=== PATIENT | male | born 1930 | race Caucasian/White ===

== ENCOUNTER → 2017-04-06 | Outpatient (CLI) | payer OTHER, MEDICARE | LOC: BHFA 10:00 | PROVIDERS: ATTEND Internal Medicine Cardiovascular Disease | DX: I35.0 Nonrheumatic aortic (valve) stenosis (principal) ==

== ENCOUNTER 2017-07-25 06:15 | Day surgery (SDC) | payer OTHER, MEDICARE ==
[2017-07-25] MEDS ORDERED: ASPIRIN EC 325 MG TAB PO ONE (06:23)
[2017-07-25] MEDS ORDERED: FAMOTIDINE 20 MG TAB PO ONE (06:23)
[2017-07-25] MEDS ORDERED: diphenhydrAMINE 25 MG CAP PO ONE (06:23)
[2017-07-25] MEDS ORDERED: NS 1,000 ML IV ONE (06:23)
[2017-07-25] MEDS ORDERED: DIAZEPAM 5 MG TAB PO ONE (06:23)
--- NOTE | 2017-07-25 06:44 | CPEKG ---
Heart Rate: 60 RR Interval: 1000 P-R Interval: 168 QRSD Interval: 90 QT Interval: 400 QTC Interval: 400 P [place]: 78 QRS [place]: 2 T Wave [place]: 62 EKG Severity - NORMAL ECG - EKG Impression: SINUS RHYTHM EKG Impression: NON-SPECIFIC ST DEPRESSION Electronically Signed By: Kip Morocho 25-Jul-2017 07:06:13
[2017-07-25] MEDS ORDERED: CLOPIDOGREL BISULFATE 75 MG TAB PO ONE (06:45)
--- NOTE | 2017-07-25 06:46 | PDPROPOC ---
Sedation Plan of Care Sedation Plan of Care: vital signs stable, mental status noted, patient educated of risks, benefits, alternatives, patient can tolerate sedation ASA Classification: ASA 2 Planned drugs: fentanyl, midazolam Mallampati Score: Class 2 Mallampati Reference Image: Patient passed 3-3-2 rule?: Yes
--- NOTE | 2017-07-25 06:46 | PDHPUP ---
History & Physical Update H&P update statement: This history and physical update is based on an assessment of the patient which was completed after admission or registration (within 24 hours), but prior to the surgery/procedure. H&P update: H&P reviewed & patient examined, no change in patient's condition since H&P completed
[2017-07-25] MEDS ORDERED: LIDOCAINE 1% 300 MG/30 ML SDV ONE (06:49)
[2017-07-25] MEDS ORDERED: fentaNYL 100 MCG/2 ML INJ ONE (06:49)
[2017-07-25] MEDS ORDERED: IOPAMIDOL (ISOVUE-370) 150 ML BTL IV ONE (06:50)
[2017-07-25] MEDS ORDERED: MIDAZOLAM 2 MG/2 ML VIAL ONE (06:50)
[2017-07-25 07:02] LABS: % IMMATURE GRANULYOCYTES 0.2 % (0.0-1.1); ABSOLUTE IMMATURE GRANULOCYTES 0.01 10^3/uL (0.00-0.10); ADD DIFF? NO; ADD MORPH? NO; ADD SCAN? NO; ATYPICAL LYMPHOCYTE FLAG 10 (0-99); FRAGMENT RBC FLAG 0 (0-99); HEMATOCRIT 40.4 % (40.0-51.0); HEMOGLOBIN 13.6 g/dL (13.7-17.5); LEFT SHIFT FLG 0 (0-99); LIPEMIA HEMOLYSIS FLAG 80 (0-99); MEAN CELL HEMOGLOBIN 31.6 pg (27.9-34.1); MEAN CELL HEMOGLOBIN CONCENTR. 33.7 g/dL (32.4-36.7); MEAN PLATELET VOLUME 9.6 fL (8.7-11.7); PLATELET CLUMPS FLAG 30 (0-99); PLATELET COUNT 259 10^3/uL (150-400); RED CELL DISTRIBUTION WIDTH 13.1 % (11.5-15.2)
[2017-07-25 07:09] LABS: ANION GAP 10 mEq/L (8-16); CALCIUM 9.4 mg/dL (8.5-10.4); CARBON DIOXIDE 28 mEq/l (22-31); CHLORIDE 103 mEq/L (97-110); CHOLESTEROL 176 mg/dL (140-220); CHOLESTEROL/HDL RATIO 2.79 RATIO (1.00-4.97); CREATININE 0.8 mg/dL (0.7-1.3); GLOMERULAR FILTRATION RATE > 60; GLUCOSE 83 mg/dL (70-100); HIGH DENSITY LIPOPROTEIN 63 mg/dL (40-65); LDL/HDL RATIO 1.57 RATIO (1.00-3.64); LOW DENSITY LIPOPROTEIN 99 mg/dL (80-100); MAGNESIUM 2.2 mg/dL (1.6-2.3); NON-HIGH DENSITY LIPOPROTEIN 113 mg/dL (90-129); SODIUM 141 mEq/L (134-144); TRIGLYCERIDE 74 mg/dL (40-150); VERY LOW DENSITY LIPOPROTEINS 14 mg/dL (8-25)
[2017-07-25 07:11] LABS: INR 0.94 (0.83-1.16); PROTIME(PATIENT) 12.5 SEC (12.0-15.0)
[2017-07-25] MEDS ORDERED: HEPARIN 10,000 UNIT/10 ML MDV ONE (07:32)
[2017-07-25] MEDS ORDERED: HYDROCODONE/APAP 5/325 TAB PO PRN (07:55)
[2017-07-25] MEDS ORDERED: ONDANSETRON 4 MG/2 ML VIAL IVP PRN (07:55)
[2017-07-25] MEDS ORDERED: OXYCODONE/APAP 5/325 TAB PO PRN (07:55)
[2017-07-25] MEDS ORDERED: ATROPINE SULFATE 1 MG/10 ML SYR IVP PRN (07:55)
[2017-07-25] MEDS ORDERED: NITROGLYCERIN 0.4 MG BTL SL PRN (07:55)
[2017-07-25] MEDS ORDERED: DOCUSATE SODIUM 100 MG CAP PO PRN (07:56)
[2017-07-25] MEDS ORDERED: CETIRIZINE 10 MG TAB PO SCH (09:00)
[2017-07-25] MEDS ORDERED: ASPIRIN 81 MG CHEWABLE TAB PO SCH (09:00)
[2017-07-25] MEDS ORDERED: DICLOFENAC SODIUM 1% 100 GM GEL TP SCH (09:00)
[2017-07-25] MEDS ORDERED: ACETAMINOPHEN 500 MG TAB PO SCH (09:00)
--- NOTE | 2017-07-25 09:04 | CPIP ---
[f rep st] INVASIVE CARDIAC PROCEDURE DATE OF PROCEDURE: 07/25/2017 INDICATIONS FOR PROCEDURE: Critical aortic stenosis, pre-TAVR catheterization. PROCEDURES: 1. Left ventriculogram. 2. 7-[place] sheath left common femoral vein. 3. 6-[place] sheath left common femoral artery. 4. Bilateral selective angiography. 5. Right heart catheterization with [place] catheter. 6. Abdominal aortogram. HISTORY: Briefly, this is an 86-year-old male with history of worsening dyspnea on exertion, with a known history of severe aortic stenosis. The patient had been evaluated by Dr. Timoteo Carrasco and given his age and overall frailty, was deemed to be a suitable candidate for TAVR. The patient was consen danielle for right and left heart catheterization in anticipation for eventual TAVR. DESCRIPTION OF PROCEDURE: The patient was brought to [facility] where the left groin w as prepped and draped in sterile fashion. The patient had been administered 1 of Versed and 50 of fe ntanyl. Using local lidocaine, a short 7-[place] sheath was placed in the left femoral vein. A 6-[facility] sheath was placed in the left common femoral artery with local lidocaine and verified angiographi shantal. A [place] catheter was then advanced. Wedge pressure was measured to be 12/12, with a mean of 11. PA pressure was measured to be 44/11, with a mean of 22. RV pressure was noted to be 55/19, with the end of 21. RA pressure was measured to be 15/15, with a mean of 12. Cardiac output was me asured to be 7.0 by Keith, with a cardiac index of 4.2. The patient had a baseline PVR of 1.5 and SVR of 8.6. The [place] catheter was then removed. A JL4 catheter was then advanced to the left elisa nary artery. Images of the left coronary artery revealed a short left main. Left circumflex artery had mild plaque disease, but no significant stenosis. It terminated to a bifurcating marginal artery distally, which appeared to be healthy and free of disease. The LAD gave off multiple small diagona l arteries, all of which were healthy and free of disease. The LAD, itself, had no significant steno sis. After the images were obtained, the JL4 catheter was removed. The JR4 catheter was advanced ov er the right coronary artery. Images of the right coronary artery revealed normal ostial proximal mi d distal RCA. The RPDA and RPLS appeared to be healthy and free of disease. After imaging was obtai frances. The JR4 catheter was removed. The pigtail catheter was advanced to the descending aorta. Abdo nuris aortogram was obtained under digital subtraction imaging, which showed patent ascending aorta, patent bilateral common iliac arteries. The right external iliac artery, just after the takeoff of t he right common iliac artery, had tubular 30% disease. The right internal iliac artery appeared to b e widely patent, and the right common femoral artery appeared to be widely patent. The left external iliac artery appeared to be widely patent. The left internal and common femoral arteries appeared t o be widely patent. Of note, the patient had received 3000 heparin at the start of the procedure. P igtail catheter was removed over a 0.035 wire, after which a sheath was sutured in place. The patien t tolerated the procedure well. No complications. IMPRESSION: 1. 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 2. Mild pulmonary hypertension with normal cardiac output. 3. Patent bilateral aortoiliac arteries with 30% disease in the right common/external iliac artery. PLAN: The patient will proceed with an ACT of less than 170. He will be discharged later this brandy taylor. He will follow up in the office in 1 weeks time. We will obtain CTAs, but most likely anticipat e performing transfemoral TAVR in the next few weeks. /[id number]/MODL
[2017-07-27] MEDS ORDERED: MULTIVITAMINS 1 EACH TAB PO SCH (07:56)
== END 2017-07-25 13:23 | disposition home or self-care (01) ==
LOC: FCATH 06:15
PROVIDERS: ATTEND Internal Medicine Cardiovascular Disease
PROC: B2151ZZ Fluoroscopy of Left Heart using Low Osmolar Contrast (ICD-10-PCS; principal; 2017-07-25)
PROC: 06HN33Z Insertion of Infusion Device into Left Femoral Vein, Percutaneous Approach (ICD-10-PCS; principal; 2017-07-25)
PROC: B410YZZ Fluoroscopy of Abdominal Aorta using Other Contrast (ICD-10-PCS; principal; 2017-07-25)
PROC: 4A023N6 Measurement of Cardiac Sampling and Pressure, Right Heart, Percutaneous Approach (ICD-10-PCS; principal; 2017-07-25)
PROC: 04HL33Z Insertion of Infusion Device into Left Femoral Artery, Percutaneous Approach (ICD-10-PCS; principal; 2017-07-25)
DX: Z01.810 Encounter for preprocedural cardiovascular examination (principal); I35.0 Nonrheumatic aortic (valve) stenosis; I70.8 Atherosclerosis of other arteries; I27.20 Pulmonary hypertension, unspecified; R06.00 Dyspnea, unspecified; R20.2 Paresthesia of skin; Z88.0 Allergy status to penicillin
CPT/HCPCS: J0461; J1644; J2250; J3010; Q9967

== ENCOUNTER → 2017-07-27 | Outpatient (CLI) | payer OTHER, MEDICARE ==
[~2017-07-27] MED LIST: IOPAMIDOL (ISOVUE 370) 100 ML BTL IV ONE
== END ==
LOC: FIMAGING 10:48
PROVIDERS: ATTEND Internal Medicine Cardiovascular Disease
DX: Z01.810 Encounter for preprocedural cardiovascular examination (principal); I35.0 Nonrheumatic aortic (valve) stenosis; I35.1 Nonrheumatic aortic (valve) insufficiency; I70.0 Atherosclerosis of aorta; R91.1 Solitary pulmonary nodule
CPT/HCPCS: 71275; 74174; Q9967

== ENCOUNTER 2017-08-08 07:24 | Inpatient (IN) | payer OTHER, MEDICARE ==
[2017-08-08] MEDS ORDERED: IOPAMIDOL (ISOVUE-300) 100 ML BTL ONE ×2 (08:51→11:18)
[2017-08-08] MEDS ORDERED: IOPAMIDOL (ISOVUE-370) 150 ML BTL IV ONE (08:51)
[2017-08-08] MEDS ORDERED: VANCOMYCIN HCL/NORMAL SALINE 250 ML IV ONE (09:30)
--- NOTE | 2017-08-08 09:33 | PDANEPAE ---
ANE History of Present Illness here for TAVR ANE Past Medical History - Cardiovascular History Hx Hypertension: Yes Hx Arrhythmias: No Hx Chest Pain: No Hx Coronary Artery / Peripheral Vascular Disease: No Hx CHF / Valvular Disease: Yes Hx Palpitations: No - Pulmonary History Hx COPD: No Hx Asthma/Reactive Airway Disease: No Hx Recent Upper Respiratory Infection: No Hx Oxygen in Use at Home: No Hx Sleep Apnea: No - Neurologic History Hx Cerebrovascular Accident: No Hx Seizures: No Hx Dementia: No - Endocrine History Hx Diabetes: No Hypothyroid: No Hyperthyroid: No Obesity: no - Renal History Hx Renal Disorders: No - Liver History Hx Hepatic Disorders: No ANE Review of Systems Review of systems is: negative Review of Systems: - Exercise capacity Exercise capacity: <4 METS ANE Patient History - Allergies Allergies/Adverse Reactions: Penicillins Allergy (Verified 08/08/17 08:13) SEASONAL Allergy (Mild, Uncoded 08/08/17 08:13) Other-Enter Comments - Home Medications Home medications: home medication list seen and reviewed Home Medications: Aspirin [Aspirin 81mg (*)] 81 mg PO DAILY 07/18/17 [Last Taken 08/06/17] Cetirizine [ZyrTEC 10 mg (*)] 10 mg PO DAILY 07/18/17 [Last Taken 08/07/17] Diclofenac Sodium 1% [Voltaren Gel (*)] 1 luzma TP DAILY PRN 07/18/17 [Last Taken 08/07/17] Docusate Sodium [Colace 100 MG (*)] 100 mg PO DAILY PRN 07/18/17 [Last Taken 03/14] Multivitamins [Multivitamin (*)] 1 each PO WESA 07/18/17 [Last Taken 08/06/17] Acetaminophen [Tylenol 325mg (*)] 325 mg PO DAILY PRN 08/03/17 [Last Taken 08/06] Azithromycin 2,000 mg PO AD PRN 08/03/17 [Last Taken Unknown] Ferrous Sulfate [Ferrous Sulf 325 MG (*)] 325 mg PO WESA 08/03/17 [Last Taken ] Polyethylene Glycol 3350 [Miralax 17 gm (*)] 17 gm PO DAILY PRN 08/03/17 [Last Taken 08/06/17] - Smoking Hx Smoking Status: Never smoked ANE Labs/Vital Signs - Vital Signs Height: 173 cm Weight: 56.7 kg ANE Physical Exam - Airway Neck exam: FROM Mallampati Score: Class 2 Mouth exam: normal dental/mouth exam, poor dentition - Pulmonary Pulmonary: no respiratory distress - Cardiovascular Cardiovascular: regular rate and rhythym - ASA Status ASA Status: IV ANE Anesthesia Plan Anesthesia Plan: general endotracheal anesthesia
[2017-08-08] MEDS ORDERED: AMIODARONE HCL 150 MG/3 ML VIAL ONE (09:35)
[2017-08-08] MEDS ORDERED: ADENOSINE 6 MG/2 ML VIAL ONE (09:35)
[2017-08-08] MEDS ORDERED: MILRINONE/DEXTROSE/100 ML BAG IV ONE (09:35)
[2017-08-08] MEDS ORDERED: NA BICARBONATE 50 MEQ/50 ML VIAL ONE (09:35)
[2017-08-08] MEDS ORDERED: MAGNESIUM SULFATE 1 GM/2 ML VIAL ONE (09:35)
[2017-08-08] MEDS ORDERED: CITRATE DEXTROSE SOLN 500 ML BAG ONE (09:35)
[2017-08-08] MEDS ORDERED: PROTAMINE SULFATE 50 MG/5 ML VIAL IVP ONE (09:35)
[2017-08-08] MEDS ORDERED: CALCIUM CHLORIDE 1 GM/10 ML INJ ONE (09:35)
[2017-08-08] MEDS ORDERED: DOPamine/DEXTROSE/250 ML BAG IV ONE ×2 (09:35→14:11)
[2017-08-08] MEDS ORDERED: LIDOCAINE 2% 100 MG/5 ML SYR ONE (09:35)
[2017-08-08] MEDS ORDERED: niCARdipine/NACL/200 ML BAG IV ONE (09:35)
[2017-08-08] MEDS ORDERED: ALBUMIN 5% 250 ML BOTTLE IV ONE (09:35)
[2017-08-08] MEDS ORDERED: methylPREDNISolone SOD SUCC 1 GM/8 ML VIAL ONE (09:35)
[2017-08-08] MEDS ORDERED: fentaNYL 100 MCG/2 ML INJ ONE (09:36)
[2017-08-08] MEDS ORDERED: HEPARIN 10,000 UNIT/10 ML MDV ONE (09:36)
[2017-08-08] MEDS ORDERED: ceFAZolin 1 GM VIAL ONE (09:36)
[2017-08-08] MEDS ORDERED: PROPOFOL 200 MG/20 ML VIAL ONE ×2 (09:37→11:27)
[2017-08-08] MEDS ORDERED: MIDAZOLAM 2 MG/2 ML VIAL ONE (09:37)
[2017-08-08] MEDS ORDERED: ONDANSETRON DISINTEGRATING 4 MG TAB PO PRN ×2 (10:59→11:24)
[2017-08-08] MEDS ORDERED: hydrALAZINE 20 MG/ML VIAL IVP PRN ×2 (10:59→11:24)
[2017-08-08] MEDS ORDERED: IBUPROFEN 800 MG TAB PO PRN ×2 (10:59→11:24)
[2017-08-08] MEDS ORDERED: ATROPINE SULFATE 1 MG/10 ML SYR IVP PRN ×2 (10:59→11:24)
[2017-08-08] MEDS ORDERED: ONDANSETRON 4 MG/2 ML VIAL IVP PRN ×2 (10:59→11:24)
[2017-08-08] MEDS ORDERED: oxyCODONE IR 5 MG TAB PO PRN (11:24)
[2017-08-08] MEDS ORDERED: HYDROmorphONE/DILAUDID 1 MG/ML INJ IVP PRN (11:24)
[2017-08-08] MEDS ORDERED: BACITRACIN 50,000 UNIT in SODIUM CL IRRIG SOLUTION 1,000 ML IRR ONE (11:30)
[2017-08-08] MEDS ORDERED: ACETAMINOPHEN 325 MG TAB PO SCH (12:00)
--- NOTE | 2017-08-08 12:41 | CPIP ---
[f rep st] INVASIVE CARDIAC PROCEDURE DATE OF PROCEDURE: 08/08/2017 INDICATION FOR PROCEDURE: Critical aortic stenosis. Complete heart block postprocedure. CO-SURGEONS FOR THIS CASE: 1. Dr. Timoteo Carrasco. 2. Dr. Maddie Huynh. 3. Dr. Thomas Elizondo. PROCEDURE: 1. Nonselective left coronary sheathogram. 2. Nonselective right coronary sheathogram. 3. 8-[place]izen [place] sheath, right common femoral artery. 4. 6-Citizen [place] sheath, right common femoral vein. 5. 6-[place]izen [place] sheath, left common femoral artery, upsized to a 16-[place]izen [place] sheath with triple Perclose p lacements. 6. Temporary pacemaker placed in the right ventricle via the venous sheath. 7. Aortic root angiography. 8. Left heart catheterization. 9. Balloon aortic valvuloplasty using 20 x 60 balloon. 10. Placement of Medtronic CoreValve Evolut Pro 29 mm via the transfemoral route. BRIEF HISTORY: This is an 86-year-old male with history of critical aortic stenosis. The patient [place] d been deemed to be a frail candidate for open AVR, and suitable for transfemoral TAVR. After inform ed consent, patient brought to [facility], where the patient was electively intubated. DONA performed by Dr. Maddie Huynh. The patient administered 1 g of vancomycin prior to the case. A 6-Citizen [place] sheath was pl aced into the right common femoral vein. An 8-Citizen [place] sheath in the right common femoral artery, veri fied angiographically. 6-Citizen [place] sheath in the left femoral artery, verified angiographically, upsize d to a 16-Citizen [place] sheath after triple Perclose placements. The patient administered a total of 9000 h eparin IV. Valve was crossed with an AL1 catheter switched out with a Glidewire, switched out for a pigtail catheter, switched out for Confida wire. Balloon aortic valvuloplasty commenced with a 20 x 60 balloon, with a pacing rate of 183 beats per minute. After performed, the balloon was removed. W e then proceed with placement of a Medtronic CoreValve Evolut Pro 29 mm valve. This deployed success fully. Post deployment, there was no perivalvular leak noted. Of note, however, with the immediate placement of the Medtronic CoreValve across the [place] valve, the patient did develop complete heart block, which was rectified with immediate pacing at a rate of 80 beats per minute. We checked period ically for the next 15 to 20 minutes, and there was still consistent complete heart block. Thus, at this point in time, we left the temporary pacemaker in place. The valve showed no perivalvular leak and had excellent hemodynamic profile across it. The pigtail catheter was removed, and we closed the 8-Citizen [place] site with Angio-Seal. The left groin was closed with a triple Perclose placement. 6-Frenc h sheath was left in place with the lead in the RV, with constant pacing of 80 beats per minute. IMPRESSION: 1. Successful placement of Medtronic CoreValve Evolut Pro 29 mm valve via the transfemoral route. 2. Complete heart block induced by placement of the transcatheter aortic valve implantation valve. PLAN: Given the fact the patient is still requiring the temporary pacemaker support throughout the l atter half of the case, and is quite elderly, we decided that we would place a permanent pacemaker at this time, to avoid any untoward issues with the temporary wire, and knowing, most likely, the patie nt would require a permanent pacemaker in the future. I have discussed case with Dr. Mims, and we lillian l move forward with placing this permanent pacemaker at this point. I will speak with the family mem bers, as well, as I did explain to the patient and his family members prior to the case, that there w as at least 20% to 30% chance of a permanent pacemaker placement during these cases. Further orders to follow clinical course. /[id number]/MODL
[2017-08-08] MEDS: ACETAMINOPHEN 325 MG TAB PO SCH ×3 (14:26→23:35)
--- NOTE | 2017-08-08 14:57 | CPEKG ---
Heart Rate: 68 RR Interval: 882 P-R Interval: 192 QRSD Interval: 146 QT Interval: 472 QTC Interval: 503 P [place]: 78 QRS [place]: -85 T Wave [place]: 83 EKG Severity - ABNORMAL ECG - EKG Impression: ATRIAL-SENSED VENTRICULAR-PACED RHYTHM Electronically Signed By: Lino Mims 08-Aug-2017 16:02:16
--- NOTE | 2017-08-08 15:06 | POSTANESTH ---
Post Anesthetic Evaluation Cardiovascular Status: Normal, Stable Respiratory Status: Normal, Stable Level of Consciousness/Mental Status: Can Participate in Eval Pain Control: Adequate, Prn Tx Ordered Nausea/Vomiting Control: Adequate, Prn Tx Ordered Complications Possibly Related to Anesthesia: None Noted
[2017-08-08] MEDS ORDERED: CEPACOL LOZENGE PO PRN (15:08)
--- NOTE | 2017-08-08 16:04 | EPPROC ---
Electrophysiology Procedure Note: PROCEDURE PERFORMED: 1. Implantation of an A/V Pacemaker 2. Subclavian vein angiography 3. Fluoroscopy INDICATION: Emergent pacemaker placement for complete AV block post TAVR PROCEDURE NOTE: Patient presented to the cardiac catheterization laboratory in a fasting, post absorptive state . Pt was on table under anesthesia post TAVR. The left infraclavicular area was prepped and draped in the usual sterile fashion. Left subclavian venography was performed by injection of iodinated contrast into the left antecubital vein. This was done to assure patency of the vein and also to assess for any anatomical aberrations. Using a combination of blunt and sharp dissection and electrocautery, the dissection was carried down to the prepectoral fascia. A pocket was made in this anatomical plane. All bleeding was controlled with electrocautery. The pocket was packed with gauze soaked in antibiotic solution. Fluoroscopy was utilized during the entire procedure for venous access and placement of the leads. Using a direct stick technique the left extrathoracic axillary vein was accessed with 1 sticks using the modified Seldinger technique. This was changed to 2 guidewires via sheath. Placement of the guidewires into the venous system was confirmed by low-pressure blood return and also by visualizing the guidewires advancing into the inferior vena cava. A purse string suture was applied around the guidewires. Two #6 [place] sheaths were advanced under fluoroscopic guidance over the guidewire. An active fixation ventricular lead was advanced into the right ventricular apex and screwed in place. An active fixation atrial lead was advanced into the right atrial appendage and screwed in place. The peel away sheaths were removed. Pacing thresholds, sensing parameters and lead impedances were measured. There was no diaphragmatic stimulation at maximum output. The leads were sutured to the prepectoral fascia with 3 nonabsorbable sutures each. The pocket was again inspected for any bleeding. The leads were attached to the pacemaker securely. The pacemaker was inserted into the pocket and secured in place with a nonabsorbable suture. Fluoroscopy was performed in KONG and NALLELY planes to verify right-sided placement of the leads. Also fluoroscopy of the pacemaker pocket was performed. The pacemaker pocket was closed in 2 layers with absorbable monocryl sutures and sherin. Appropriate dressing was applied. The patient left the cardiac catheterization laboratory in stable condition. Serial Numbers: 1. Device: ABT/SJM ASSURITY MRI, [id number]. SN: [id number] 2. Atrial Lead: ABT/SJM TENDRIL STS, /46. SN: [id number] 3. Ventricular Lead: ABT/SJM TENDRIL STS, /52. SN: [id number] Stimulation Thresholds & Impedance Measurements: 1. Atrial Lead: 0.5v@0.5ms / 3.2mV / 446 ohm 2. Ventricular Lead: 0.5v@.05ms / 23.4mV / 641 ohm Marco Antonio Pacing Parameters 1. Pacing mode: DDD 2. Lower rate: 60ppm 3. Upper tracking rate: 130 ppm 4. Upper sensor rate: 130 ppm Patient Problems: Problems Problem Status Onset Heart block AV third degree Acute
[2017-08-09 05:58] LABS: % IMMATURE GRANULYOCYTES 0.1 % (0.0-1.1); ABSOLUTE IMMATURE GRANULOCYTES 0.01 10^3/uL (0.00-0.10); ADD DIFF? NO; ADD MORPH? NO; ADD SCAN? NO; ATYPICAL LYMPHOCYTE FLAG 0 (0-99); FRAGMENT RBC FLAG 10 (0-99); HEMATOCRIT 31.4 % (40.0-51.0); HEMOGLOBIN 10.7 g/dL (13.7-17.5); LEFT SHIFT FLG 0 (0-99); LIPEMIA HEMOLYSIS FLAG 90 (0-99); MEAN CELL HEMOGLOBIN CONCENTR. 34.1 g/dL (32.4-36.7); MEAN PLATELET VOLUME 10.6 fL (8.7-11.7); PLATELET CLUMPS FLAG 0 (0-99); PLATELET COUNT 188 10^3/uL (150-400); RED BLOOD CELL COUNT 3.34 10^6/uL (4.40-6.38); RED CELL DISTRIBUTION WIDTH 13.2 % (11.5-15.2)
[2017-08-09 06:03] LABS: INR 1.07 (0.83-1.16); PROTIME(PATIENT) 14.1 SEC (12.0-15.0)
[2017-08-09 06:04] LABS: ANION GAP 5 mEq/L (8-16); CALCIUM 8.5 mg/dL (8.5-10.4); CARBON DIOXIDE 27 mEq/l (22-31); CHLORIDE 110 mEq/L (97-110); CREATININE 0.7 mg/dL (0.7-1.3); GLOMERULAR FILTRATION RATE > 60; GLUCOSE 85 mg/dL (70-100); SODIUM 142 mEq/L (134-144)
[2017-08-09] MEDS: ACETAMINOPHEN 325 MG TAB PO SCH ×4 (06:25→23:43)
[2017-08-09] MEDS ORDERED: POLYETHYLENE GLYCOL 3350 17 GM PKT PO PRN (07:05)
[2017-08-09] MEDS ORDERED: DICLOFENAC SODIUM 1% 100 GM GEL TP PRN (07:05)
[2017-08-09] MEDS ORDERED: DOCUSATE SODIUM 100 MG CAP PO PRN (07:05)
--- NOTE | 2017-08-09 07:05 | PDCARPN ---
Cardiology Progress Note Chief Complaint: SOB Assessment/Plan: Assessment: s/p TAVR s/p PPM Plan: 08/09/17 07:02 Doing well OOB transfer to floor Check echo Reviewed/Discussed With: other (RN) Time Spent With Patient: 25 min Objective: Vital Signs (8 Hrs) Pulse Resp BP Pulse Ox 08/09/17 04:00 74 16 118/40 L 96 08/08/17 23:52 74 15 100/49 L 97 Intake/Output (24 Hrs) 08/08/17 08/09/17 08/10/17 05:59 05:59 05:59 Intake Total 850 Output Total 625 Balance 225 Intake: Oral (ml) 850 Output: Urine (ml) 625 Urinal 625 Other: Weight 56.7 kg Intake Quantity Yes Sufficient Number of Voids Toilet 4 Result Diagrams: 08/09/17 05:10 08/09/17 05:10 - Physical Exam Constitutional: healthy appearing Eyes: PERRL Cardiovascular: regular rate and rhythm Peripheral Pulses: 1+: femoral (R), femoral (L) Respiratory: clear to auscultate bilat Gastrointestinal: normoactive bowel sounds Genitourinary: no suprapubic tenderness Skin: no rashes Musculoskeletal: no muscular tenderness Neurologic: AAOx3 Psychiatric: cooperative ICD10 Worksheet Patient Problems: Problems Problem Status Onset Heart block AV third degree Acute
[2017-08-09] MEDS: CETIRIZINE 10 MG TAB PO SCH (08:29)
[2017-08-09] MEDS: CLOPIDOGREL BISULFATE 75 MG TAB PO SCH (08:29)
--- NOTE | 2017-08-09 08:50 | CPEKG ---
Heart Rate: 74 RR Interval: 811 P-R Interval: 156 QRSD Interval: 140 QT Interval: 452 QTC Interval: 502 P [place]: -9 QRS [place]: -86 T Wave [place]: 80 EKG Severity - ABNORMAL ECG - EKG Impression: A sensed VENTRICULAR-PACED COMPLEXES Electronically Signed By: Lino Mims 09-Aug-2017 08:55:55
--- NOTE | 2017-08-09 11:13 | ASMTCMCOM ---
CM Note CM Note Notes: 86 year old male admitted for aortic stenosis. Has a hx of borderline HTN and Meniere's synd. To have a TAVR procedure. CM to follow for possible discharge needs. Date Signed: 08/09/2017 11:12 AM Electronically Signed By:Rissa Brown LCSW
--- NOTE | 2017-08-09 12:01 | ECHO ---
[email or web address] [address] [address] Main: [phone] Fax: Transesophageal Echocardiography Name: OLVIN SHARMA MR#: [id number] Study Date: 08/08/2017 Study Time: 09:59 AM Date of : 1930 Age: 86 year(s) Height: ( ) Weight: ( ) BSA: Gender: Male Examination: DONA Indication: DONA during TAVR, pre and post. Image Quality: Contrast: Requested by: Timoteo Carrasco Heart Rate: Rhythm: BP: / Procedure Staff Product Tester: Lukas Bermudez Reading Physician: Maddie Huynh Requesting Provider: Nba Mancilla DONA Exam Details Patient Consent: Risks, alternatives of procedure explained to patient, informed consent obtained. Exam Location: [facility] Patient Fasting: yes Conclusions: Successful TAVR deployment with post procedure AV gradient of 2 mmHg mean and DREW of 2.3 cm2. Normal EF no wall motion abnormalities and no pericardial effusion Measurements: Chambers Valvular Assessment AV/MV Valvular Assessment TV/PV Normal Normal Normal Name Value Range Name Value Range Name Value Range LVOTd 1.7 cm 1.7 cm mm AV Vmax: 4.80 m/s (1 m/s-1.7 TR Vmax: 2.77 mm/s ( - ) m/s) TR PGmax: 31 mmHg ( - ) AV maxP mmHg ( - ) syst. PAP: 36 mmHg ( - ) AV meanP mmHg ( - ) DREW (VTI): 1.8 cm ( - ) Additional Measurements: Valvular Assessment TV/PV Name Value CVP (est.): 5 mmHg Patient: OLVIN SHARMA Study Date: 08/08/2017 Page 1 of 2 09:59 AM Findings: Left Ventricle: Normal global systolic LV function. Mitral Valve: The mitral valve is normal in appearance. Mild to moderate mitral regurgitation. Exam Comments: PRE TAVR: Severe Aortic valve calcification and stenosis. The AV peak velocity is 4.42 cm/s with a Ao mean gradient of 48 mmHg. No aortic insufficiency. There was no pericardial effusion noted at 2/3 deployment. POST TAVR: The max velocity across the TAVR is 83.7 cm/s with a Ao mean PG of 2 mmHg. No AI with mild to moderate mitral regurgitation. No pericardial effusion is noted.. l1n (No Signature Object) Patient: OLVIN SHARMA Study Date: 08/08/2017 Page 2 of 2 09:59 AM [id number]
--- NOTE | 2017-08-09 14:04 | ECHO ---
[email or web address] [address] [address] Main: [phone] Fax: Transthoracic Echocardiogram Name: OLVIN SHARMA MR#: [id number] Study Date: 08/09/2017 Study Time: 07:43 AM Date of : 1930 Age: 86 year(s) Height: 177.8 cm (70 in.) Weight: 75.3 kg (166 lb.) BSA: 1.93 m2 Gender: Male Examination: Echo Indication: Post TAVR, Pacemaker Image Quality: Contrast: Requested by: Nba Mancilla BP: 118 mmHg/40 mmHg Heart Rate: Rhythm: Indication: Post TAVR, Pacemaker Procedure Staff Diesel Engine Mechanic Apprentice: Lukas Bermudez Reading Physician: Noam Pardo Requesting Provider: Conclusions: Normal size left ventricle. No LV hypertrophy. Normal global systolic LV function. EF is 76 %. No regional wall motion abnormality. Diastolic dysfunction is present. . There is a pacemaker lead noted in the right ventricle. Mild mitral valve regurgitation is present. There is a AV core valve, AV max is 2.4 m/s with an Ao mean PG of 13 mmHg. No perivalvular leaks, no pericardial effusion.. Measurements: Chambers Valvular Assessment AV/MV Valvular Assessment TV/PV Normal Normal Normal Name Value Range Name Value Range Name Value Range Ao Madeleine (MM): 2.2 cm (2.2 cm-3.7 AV Vmax: 2.42 m/s (1 m/s-1.7 TR Vmax: 2.96 mm/s ( - ) cm) m/s) TR PGmax: 35 mmHg ( - ) IVSd (2D): 0.9 cm (0.6 cm-1.1 AV maxP mmHg ( - ) syst. PAP: 40 mmHg ( - ) cm) AV meanP mmHg ( - ) PV Vmax: 0.94 m/s (0.6 m/s-0.9 LVDd (2D): 4.3 cm (4.2 cm-5.9 DREW (VTI): 1.0 cm ( - ) m/s) cm) MV E Vmax: 0.80 m/s ( - ) PV PGmax: 4 mmHg ( - ) LVDs (2D): 2.4 cm (2.1 cm-4 MV A Vmax: 0.99 m/s ( - ) cm) MV E/A: 0.81 ( - ) LVPWd (2D): 0.9 cm (0.6 cm-1 cm) LVOTd 1.7 cm 1.7 cm mm LVEF (2D): 76 (>=54 %) Continued Measurements: Chambers Valvular Assessment AV/MV Valvular Assessment TV/PV Patient: OLVIN SHARMA Study Date: 08/09/2017 Page 1 of 2 07:43 AM Name Value Name Value Name Value LADs Lon.0 cm MV E' Septal: 0.06 m/s CVP (est.): 5 mmHg LA Area: 12.9 cm2 MV E/E' Septal: 12.60 Findings: Left Ventricle: Normal size left ventricle. No LV hypertrophy. Normal global systolic LV function. EF is 76 %. No regional wall motion abnormality. Diastolic dysfunction is present. . Right Ventricle: Normal size right ventricle. Normal RV function. There is a pacemaker lead noted in the right ventricle. Left Atrium: The left atrium is normal in size. Right Atrium: The right atrium is normal in size. Mitral Valve: The mitral valve is normal in appearance. Mild mitral valve regurgitation is present. Aortic Valve: There is a AV core valve, AV max is 2.4 m/s with an Ao mean PG of 13 mmHg. No perivalvular leaks, no pericardial effusion.. Tricuspid Valve: Mild tricuspid regurgitation is present. The pulmonary artery pressure is mildly increased. Pulmonic Valve: The pulmonic valve is normal in appearance and function. Aorta: The aorta is normal. Pericardium: No pericardial effusion. (No Signature Object) Patient: OLVIN SHARMA Study Date: 08/09/2017 Page 2 of 2 07:43 AM [id number]
[2017-08-10 05:21] LABS: % IMMATURE GRANULYOCYTES 0.1 % (0.0-1.1); ABSOLUTE IMMATURE GRANULOCYTES 0.01 10^3/uL (0.00-0.10); ADD DIFF? NO; ADD MORPH? NO; ADD SCAN? NO; ATYPICAL LYMPHOCYTE FLAG 10 (0-99); FRAGMENT RBC FLAG 0 (0-99); HEMATOCRIT 31.9 % (40.0-51.0); HEMOGLOBIN 10.8 g/dL (13.7-17.5); LEFT SHIFT FLG 0 (0-99); LIPEMIA HEMOLYSIS FLAG 90 (0-99); MEAN CELL HEMOGLOBIN 31.9 pg (27.9-34.1); MEAN CELL HEMOGLOBIN CONCENTR. 33.9 g/dL (32.4-36.7); MEAN CELL VOLUME 94.1 fL (81.5-99.8); MEAN PLATELET VOLUME 10.5 fL (8.7-11.7); PLATELET CLUMPS FLAG 0 (0-99); PLATELET COUNT 155 10^3/uL (150-400); RED BLOOD CELL COUNT 3.39 10^6/uL (4.40-6.38); RED CELL DISTRIBUTION WIDTH 13.4 % (11.5-15.2)
[2017-08-10 05:24] LABS: INR 1.11 (0.83-1.16); PROTIME(PATIENT) 14.5 SEC (12.0-15.0)
[2017-08-10] MEDS: ACETAMINOPHEN 325 MG TAB PO SCH (05:41)
--- NOTE | 2017-08-10 06:44 | PDCARPN ---
Cardiology Progress Note Chief Complaint: SOB Assessment/Plan: Assessment: s/p TAVR s/p PPM Plan: 08/09/17 07:02 Doing well OOB transfer to floor Check echo 08/10/17 06:43 doing well echo- NL EF, TAVR d/c ho,e today f/u in 1 week Subjective: doing well Reviewed/Discussed With: other (RN) Time Spent With Patient: 25 min Objective: Vital Signs (8 Hrs) Temp Pulse Resp BP Pulse Ox 08/10/17 04:00 36.8 C 80 16 123/55 H 90 L 08/09/17 23:28 37.1 C 81 16 132/62 H 91 L Intake/Output (24 Hrs) 08/09/17 08/10/17 08/11/17 05:59 05:59 05:59 Intake Total 850 10 Output Total 625 Balance 225 10 Intake: Oral (ml) 850 IV Intake (ml) 10 Output: Urine (ml) 625 Urinal 625 Other: Weight 56.7 kg Intake Quantity Yes Yes Sufficient Number of Voids Toilet 4 4 Result Diagrams: 08/10/17 04:03 08/09/17 05:10 - Physical Exam Constitutional: healthy appearing Eyes: PERRL Cardiovascular: regular rate and rhythm Peripheral Pulses: 1+: femoral (R), femoral (L) Respiratory: clear to auscultate bilat Gastrointestinal: normoactive bowel sounds Skin: no rashes Musculoskeletal: no muscular tenderness Neurologic: AAOx3 Psychiatric: cooperative ICD10 Worksheet Patient Problems: Problems Problem Status Onset Heart block AV third degree Acute
[2017-08-10] MEDS ORDERED: FERROUS SULFATE 325 MG TAB PO SCH (07:05)
[2017-08-10] MEDS ORDERED: MULTIVITAMINS 1 EACH TAB PO SCH (07:05)
--- NOTE | 2017-08-10 07:10 | GDS ---
[f rep st] DISCHARGE SUMMARY DISCHARGE DIAGNOSIS: Aortic stenosis. HOSPITAL COURSE: Briefly, this is an 86-year-old male with history of critical aortic stenosis. Pat nt was deemed to be a suitable candidate for TAVR secondary to age and frailty. Patient underwent successful transfemoral TAVR on 08/08/2017 with Medtronic CoreValve Evolut Pro 29 mm valve. The judd ent's procedure was complicated with complete heart block, which was rectified with placement of a pe rmanent pacemaker by Dr. Mims. Postprocedure, patient has done very well, ambulating in the [place] wit hout problems. Echocardiogram shows normal ventricular function with no perivalvular leak and normal TAVR function. DISCHARGE MEDICATIONS: The patient will be discharged home this morning with his home medications, i ncluding Plavix. FOLLOWUP: He will follow up in the office in 1 week's time. /[id number]/MODL
[2017-08-10 07:17] VITALS: BP 133/58; PULSE 74; RESP 22; TEMP 98; O2SAT 95
[2017-08-10] MEDS: CLOPIDOGREL BISULFATE 75 MG TAB PO SCH (07:17)
[2017-08-10] MEDS: CETIRIZINE 10 MG TAB PO SCH (07:18)
--- NOTE | 2017-08-10 10:01 | ASMTCMCOM ---
CM Note CM Note Notes: 08/10/2017 Case Management Note Reviewed chart. Pt is s/p TAVR and ambulating without difficulty. There are no PT or OT evals ordered at this time. TAVR pt are assess prior to procedure for family support during the recovery period. Csse Management d/c poc: Home with family support with follow up as directed. Case Management available if needs change. Date Signed: 08/10/2017 10:01 AM Electronically Signed By:Adalgisa Keenan RN
--- NOTE | 2017-08-10 11:56 | ASDISCHSUM ---
Discharge Information Plan Status:Home with No Needs Medically Cleared to Leave:08/09/2017 Discharge Date:08/10/2017 11:35 AM CM D/C Disposition:Home, Routine, Self-Care ADT D/C Disposition:Home, Routine, Self-Care Projected Discharge Date:08/10/2017 11:35 AM Transportation at D/C:Family Discharge Delay Reason: Follow-Up Date:08/10/2017 11:35 AM Discharge Slot: Final Diagnosis:Aortic stenosis Placement Information Patient Contact Information Contact Name:AMEE Relationship: Address:[address] [place] [address] City:[place] Alternate Phone: [facility]/Zip Code:[place] [address] Email: Financial Information Financial Class: Primary Plan Desc:MEDICARE INPATIENT Primary Plan Number:[id number] Secondary Plan Desc:[employer]/MDR SUPPLEMENT Secondary Plan Number:[id number] Assessment Information [facility] CM Progress Note CM Note CM Note Notes: 86 year old male admitted for aortic stenosis. Has a hx of borderline HTN and Meniere's synd. To have a TAVR procedure. CM to follow for possible discharge needs. Date Signed: 08/09/2017 11:12 AM Electronically Signed By:Rissa Brown LCSW [facility] CM Progress Note CM Note CM Note Notes: 08/10/2017 Case Management Note Reviewed chart. Pt is s/p TAVR and ambulating without difficulty. There are no PT or OT evals ordered at this time. TAVR pt are assess prior to procedure for family support during the recovery period. Csse Management d/c poc: Home with family support with follow up as directed. Case Management available if needs change. Date Signed: 08/10/2017 10:01 AM Electronically Signed By:Adalgisa Keenan RN Intervention Information Intervention Type:*IM-Signed Date of Service:08/10/2017 11:36 AM Patient Type:Inpatient Staff Member:Marybeth Karimi Hours: Discipline: Severity: Comment:
== END 2017-08-10 11:35 | disposition home or self-care (01) | DRG 267 ==
LOC: FCATH 07:24 → F2N 11:00 → F2W 08-09 17:36
PROVIDERS: ADMIT Thoracic Surgery (Cardiothoracic Vascular Surgery); ATTEND Thoracic Surgery (Cardiothoracic Vascular Surgery)
PROC: 02RF38Z Replacement of Aortic Valve with Zooplastic Tissue, Percutaneous Approach (ICD-10-PCS; principal; 2017-08-08)
PROC: 0JH606Z Insertion of Pacemaker, Dual Chamber into Chest Subcutaneous Tissue and Fascia, Open Approach (ICD-10-PCS; 2017-08-08)
PROC: 02HK3JZ Insertion of Pacemaker Lead into Right Ventricle, Percutaneous Approach (ICD-10-PCS; 2017-08-08)
PROC: 02H63JZ Insertion of Pacemaker Lead into Right Atrium, Percutaneous Approach (ICD-10-PCS; 2017-08-08)
DX: I35.0 Nonrheumatic aortic (valve) stenosis (principal); Z00.6 Encounter for examination for normal comparison and control in clinical research program; I44.2 Atrioventricular block, complete; H81.09 Meniere's disease, unspecified ear; I10 Essential (primary) hypertension; Z96.653 Presence of artificial knee joint, bilateral
CPT/HCPCS: 92610-GN; 97161-GP; 97165-GO; 97530-GP; 97535-GO; C1760; C1769; C1785; C1894; C1898; G8978-GP-CH; G8979-GP-CH; G8980-GP-CH; G8987-GO-CI; G8988-GO-CI; G8996-GN-CI; G8997-GN-CI; G8998-GN-CI; J0153; J0282; J0690; J1265; J1644; J2001; J2250; J2260; J2405; J2704; J2720; J2930; J3010; J3370; J7060; P9041; Q9967

== ENCOUNTER → 2017-09-08 | Outpatient (CLI) | payer OTHER, MEDICARE | LOC: BHFA 10:45 | PROVIDERS: ATTEND Internal Medicine Cardiovascular Disease | DX: I35.0 Nonrheumatic aortic (valve) stenosis (principal) ==

== ENCOUNTER 2018-05-09 07:54 | Day surgery (SDC) | payer OTHER, MEDICARE ==
[2018-05-09] MEDS ORDERED: ceFAZolin 2 GM/DEXTROSE 100 ML IV ONE (08:07)
[2018-05-09] MEDS ORDERED: LR 1,000 ML IV ONE (08:13)
[2018-05-09] MEDS ORDERED: LIDOCAINE 1% 300 MG/30 ML SDV ONE (08:30)
[2018-05-09] MEDS ORDERED: BUPIVACAINE 0.5% 30 ML SDV ONE (08:30)
--- NOTE | 2018-05-09 09:52 | PDANEPAE ---
ANE History of Present Illness R inguinal hernia, here for open repair ANE Past Medical History - Cardiovascular History Hx Hypertension: Yes Hx Arrhythmias: No Hx Chest Pain: No Hx Coronary Artery / Peripheral Vascular Disease: No Hx CHF / Valvular Disease: Yes Hx Palpitations: No - Pulmonary History Hx COPD: No Hx Asthma/Reactive Airway Disease: No Hx Recent Upper Respiratory Infection: No Hx Oxygen in Use at Home: No Hx Sleep Apnea: No Sleep Apnea Screening Result - Last Documented: Negative - Neurologic History Hx Cerebrovascular Accident: No Hx Seizures: No Hx Dementia: No - Endocrine History Hx Diabetes: No - Renal History Hx Renal Disorders: No - Liver History Hx Hepatic Disorders: No - Neurological & Psychiatric Hx Hx Neurological and Psychiatric Disorders: No - Cancer History Hx Cancer: No - Congenital Disorder History Hx Congenital Disorders: No - GI History Hx Gastrointestinal Disorders: No - Other Health History Other Health History: wears glasses. has dental implants. no issues with ears since surgery for Mnire's syndrome, 1987 - Chronic Pain History Chronic Pain: Yes - Surgical History Prior Surgeries: TVAR - transcatheter AVR & PPM placement 08/08/17. Bilat TKA. right ear surgery to remove pressure 1987, no hearing on R ANE Review of Systems Review of Systems: - Exercise capacity METS (RN): 4 METS - Pacemaker Pacemaker Type: Permanent Pacer/Defib Pacemaker [employer] Supervisor: [employer] Pacemaker Model: 2272 Pacemaker Mode: DDDR Pacemaker Set Rate: 60 Date Pacemaker Last Checked: 02/27/18 ANE Patient History - Allergies Allergies/Adverse Reactions: clindamycin Allergy (Verified 04/28/18 10:25) causes reflux Penicillins Allergy (Verified 04/28/18 10:22) rash, congestion SEASONAL Allergy (Mild, Uncoded 04/28/18 10:22) RUNNY NOSE, WATERY EYES - Home Medications Home medications: home medication list seen and reviewed Home Medications: Cetirizine [ZyrTEC 10 mg (*)] 07/18/17 [Last Taken 05/08/18] Diclofenac Sodium 1% [Voltaren Gel (*)] 07/18/17 [Last Taken 05/07/18] Docusate Sodium [Colace 100 MG (*)] 07/18/17 [Last Taken 05/07/18] Multivitamins [Multivitamin (*)] 07/18/17 [Last Taken 05/06/18] Acetaminophen [Tylenol 325mg (*)] 08/03/17 [Last Taken 08/06/17] Ferrous Sulfate [Ferrous Sulf 325 MG (*)] 08/03/17 [Last Taken 05/07/18] Polyethylene Glycol 3350 [Miralax 17 gm (*)] 08/03/17 [Last Taken 05/07/18] Acetaminophen [Tylenol 325mg (*)] 04/28/18 [Last Taken 05/08/18] Xarelto 04/28/18 [Last Taken 05/05/18] - NPO status NPO Status: no food or drink >8 hours NPO Since - Liquids (Date): 05/08/18 NPO Since - Liquids (Time): 23:00 NPO Since - Solids (Date): 05/08/18 NPO Since - Solids (Time): 19:00 - Anes Hx Anes Hx: no prior problems - Smoking Hx Smoking Status: Never smoked - Alcohol Use Alcohol Use: Rarely - Family Anes Hx Family Anes Hx: none Family Hx Anesthesia Complications: none ANE Labs/Vital Signs - Vital Signs Blood Pressure: 154/76 Heart Rate: 61 Respiratory Rate: 15 O2 Sat (%): 98 Height: 172.72 cm Weight: 56.699 kg ANE Physical Exam - Airway Neck exam: FROM Mallampati Score: Class 3 Mouth exam: normal dental/mouth exam - Pulmonary Pulmonary: no respiratory distress, clear to auscultation - Cardiovascular Cardiovascular: regular rate and rhythym, no murmur, rub, or gallop - ASA Status ASA Status: III ANE Anesthesia Plan Anesthesia Plan: GA w LMA
[2018-05-09] MEDS ORDERED: KETOROLAC 30 MG/1 ML SDV ONE (09:58)
[2018-05-09] MEDS ORDERED: ONDANSETRON 4 MG/2 ML VIAL ONE (09:58)
[2018-05-09] MEDS ORDERED: PROPOFOL 200 MG/20 ML VIAL ONE (09:58)
[2018-05-09] MEDS ORDERED: DEXAMETHASONE 4 MG/ML VIAL ONE (09:58)
[2018-05-09] MEDS ORDERED: LIDOCAINE 2% 100 MG/5 ML SYR ONE (09:58)
[2018-05-09] MEDS ORDERED: fentaNYL 100 MCG/2 ML INJ ONE (09:58)
--- NOTE | 2018-05-09 10:58 | POSTANESTH ---
Post Anesthetic Evaluation Cardiovascular Status: Normal, Stable, Similar to Pre-Op Cond Respiratory Status: Normal, Stable, Similar to Pre-op Cond. Level of Consciousness/Mental Status: Can Participate in Eval, Alert and Oriented Pain Control: Adequate, Prn Tx Ordered Nausea/Vomiting Control: Adequate, Prn Tx Ordered Complications Possibly Related to Anesthesia: None Noted
--- NOTE | 2018-05-09 11:09 | POSTOPPROG ---
Post Op Note Date of Operation: 05/09/18 Surgeon: Last Trujillo Fisher Hoop Net: Jacquelyn Garcia MSIII Anesthesiologist: Dr. Montilla Anesthesia: LMA Pre-op Diagnosis: RIH Post-op Diagnosis: RIH Procedure: RIHR Findings: Pantaloon Inf/Abcess present in the surg proc area at time of surgery?: No EBL: Minimal
[2018-05-09] MEDS ORDERED: NALOXONE HCL 0.4 MG/ML INJ IVP PRN (11:29)
[2018-05-09] MEDS ORDERED: oxyCODONE IR 5 MG TAB PO PRN (11:29)
[2018-05-09] MEDS ORDERED: ONDANSETRON 4 MG/2 ML VIAL IVP PRN (11:29)
[2018-05-09] MEDS ORDERED: fentaNYL 100 MCG/2 ML INJ IVP PRN (11:29)
[2018-05-09] MEDS ORDERED: ACETAMINOPHEN 500 MG TAB PO PRN (11:29)
[2018-05-09 12:11] VITALS: BP 118/72
--- NOTE | 2018-05-09 14:19 | GOP ---
DATE OF OPERATION: 05/09/2018 SURGEON: Cornelius Trujillo MD DOCUMENT IMPROVEMENT SPECIALIST: Jacquelyn Garcia MS3 ANESTHESIA: Laryngeal mask anesthesia per Dr. Montilla. PREOPERATIVE DIAGNOSIS: Right inguinal hernia. POSTOPERATIVE DIAGNOSIS: Right inguinal hernia. PROCEDURE PERFORMED: Open right inguinal hernia repair. FINDINGS: The patient had a moderate direct hernia and a moderate-sized lipoma of the cord. ESTIMATED BLOOD LOSS: 20 cc. INDICATIONS: 87-year-old male with a history of right groin bulge. Risks and benefits of procedure discussed with the patient's family, their questions were answered. They wish to proceed. DESCRIPTION OF PROCEDURE: The patient was placed in the supine position. After the induction of fabien quate IV sedation, the patient was prepped and draped in the standard surgical fashion. Marcaine 0.5 % was injected throughout the right groin for local anesthesia. An oblique incision was made and meza ied to the subcutaneous tissue using cautery. The external oblique was incised in the direction of i ts fibers. The cord was then surrounded at the pubic tubercle. The cord structures were then careful ly dissected, preserving the vas and vessels. The hernia was then dissected down to preperitoneal fa t and reduced. A plug was fashioned from Marlex and secured using 2-0 Vicryl interrupted. An onlay patch was created and affixed using 2-0 Prolene. Enough room was seen for the cord and an instrument tip. Good hemostasis was noted. The external oblique and Jimi's were approximated using 3-0 Vicry l in a running fashion. Skin was closed with 5-0 Biosyn subcuticular. The wound was sterilely dress ed, the patient was taken to the post-anesthesia care unit in stable condition. COMPLICATIONS: None. DRAINS: None. /[id number]/MODL
== END 2018-05-09 12:30 | disposition home or self-care (01) ==
LOC: FSGY 07:54
PROVIDERS: ATTEND Surgery
PROC: 0YU50JZ Supplement Right Inguinal Region with Synthetic Substitute, Open Approach (ICD-10-PCS; principal; 2018-05-09 10:00)
DX: K40.90 Unilateral inguinal hernia, without obstruction or gangrene, not specified as recurrent (principal); I48.91 Unspecified atrial fibrillation; I35.0 Nonrheumatic aortic (valve) stenosis; I49.5 Sick sinus syndrome; Z79.01 Long term (current) use of anticoagulants; Z95.0 Presence of cardiac pacemaker
CPT/HCPCS: C1781; J0690; J1100; J1885; J2001; J2405; J2704; J3010

== ENCOUNTER → 2018-10-02 | Outpatient (CLI) | payer OTHER, MEDICARE | LOC: BHFA 10:00 | PROVIDERS: ATTEND Internal Medicine Cardiovascular Disease | DX: I35.0 Nonrheumatic aortic (valve) stenosis (principal) ==